=== PATIENT | female | born 1945 | race Caucasian/White ===

== ENCOUNTER → 2021-09-21 14:55 | Outpatient (CLI) | payer MEDICARE, OTHER, SELFPAY ==
[2021-09-21 17:43] LABS: Erythrocyte Sedimentation Rate 10 mm/hr (0-30)
[2021-09-21 17:44] LABS: Hematocrit 42.2 % (37-47); Mean Corp Hgb Conc 33.2 g/dL (32-36); Mean Corpuscular Hgb 29.9 pg (27.0-32.0); Mean Platelet Vol. 9.7 fl (6.2-12.0); Platelet Count 287 K/mm3 (150-450); RBC Distribution Width CV 13.8 % (11.6-14.6); RBC Distribution Width SD 45.1 fl (35.1-43.9); Red Blood Count 4.69 M/mm3 (4.2-5.4); White Blood Count 7.5 K/mm3 (4.4-11.0)
[2021-09-21 18:00] LABS: CRP 7.85 mg/L (0.0-3.0)
== END ==
PROVIDERS: PCP Internal Medicine; Referring Provider Ophthalmology; Visit Provider Ophthalmology
DX: R51.9 Headache, unspecified (principal)
CPT/HCPCS: 36415; 85027; 85652; 86140